=== PATIENT | female | born 1955 | race African-American/Black ===

== ENCOUNTER → 2016-04-25 | Outpatient (CLI) | payer OTHER ==
--- NOTE | 2016-04-28 13:39 | REPMRS ---
Patient History The patient states she has not had a clinical breast exam in over a year. Patient is postmenopausal. No known family history of cancer. [place], will have the fileroom call and try to have them sent Digital Mammo Screening Bilat: April 25, 2016 - Exam #: [id number] Bilateral CC and MLO view(s) were taken. Technologist: Yarelis Napoles, Technologist Prior study comparison: September 01, 2015, digital bilateral screening mammo, [place] [facility]. October 26, 2014, digital bilateral screening mammo, performed at [facility]. FINDINGS: There are scattered fibroglandular densities. There has been no change in the appearance of the mammogram from the prior studies. There is a mild amount of scattered fibroglandular density which is fairly symmetric. There is no interval development of dominant mass, architectural distortion, or clustered microcalcification suggestive of malignancy. ASSESSMENT: BI-RADS/ACR category 1 mammogram. Negative. Recommendation Routine screening mammogram in 1 year (for women over age 40). This mammogram was interpreted with the aid of an FDA-approved computer-aided dectection system. Electronically Signed By: Luis Hernandez MD 04/28/16 0399
== END ==
LOC: M RAD 08:31
PROVIDERS: ATTEND Physician Assistant
DX: Z12.31 Encounter for screening mammogram for malignant neoplasm of breast (principal); Z78.0 Asymptomatic menopausal state

== ENCOUNTER → 2016-06-28 | Outpatient (CLI) | payer OTHER ==
--- NOTE | 2016-06-28 08:15 | REP ---
Clinical: Hydronephrosis. Obstruction. Technique: Real time flores scale ultrasound examination using curved array transducer. Findings: The bilateral kidneys are normal in contour, size, echogenicity, and reniform shape without hydronephrosis, nephrolithiasis, cystic or renal mass lesion. Right kidney measures 9.7 x 5.0 x 3.8 cm. Left kidney measures 9.5 x 5.3 x 4.1 cm. Bladder demonstrates mild wall thickening to 5.9 mm and small amount of layering debris which may be evaluated by urinalysis. Bilateral ureteral jets are identified excluding complete ureteral obstruction. Prevoid bladder measures 8.4 x 8.2 x 7.2 cm (324 ml). Postvoid bladder measures 5.1 x 2.2 x 3.7 cm (27 ml). Postvoid residual equals 8.4%. Impression: Essentially normal ultrasound. Layering debris within the bladder may be followed by urinalysis Signed by Alex Smith MD 06/28/2016 08:06 A
== END ==
LOC: M RAD 06:55
PROVIDERS: ATTEND Internal Medicine Nephrology
DX: N13.2 Hydronephrosis with renal and ureteral calculous obstruction (principal)

== ENCOUNTER → 2016-12-11 | Outpatient (REF) | payer OTHER | LOC: M LABNEURO 10:06 | PROVIDERS: ATTEND Psychiatry & Neurology Neurology | DX: R51 Headache (principal) ==